=== PATIENT | female | born 1960 | race Hispanic/Latino ===

== ENCOUNTER 2023-10-08 12:50 | Emergency (ER) | payer MEDICAID ==
[~2023-10-08] VITALS: Ht 172.7 cm; Wt 56.7 kg
[2023-10-08] MEDS ORDERED: MORPHINE 2 MG SYG IM ONE (14:00)
[2023-10-08] MEDS ORDERED: KETOROLAC 30MG VIAL (30MG/ML) IM ONE (15:00)
[2023-10-08] MEDS ORDERED: NAPR-1180 PO (15:39)
[2023-10-08] MEDS ORDERED: M-SA237L TP (15:40)
[2023-10-08 15:58] VITALS: BP 147/73; PULSE 82; RESP 18; O2SAT 98
== END 2023-10-08 16:01 | disposition home or self-care (01) ==
LOC: EDH 12:50
DX: M25.562 Pain in left knee (principal); M25.561 Pain in right knee; E78.00 Pure hypercholesterolemia, unspecified; Z88.0 Allergy status to penicillin; W01.10XA Fall on same level from slipping, tripping and stumbling with subsequent striking against unspecified object, initial encounter; Y93.89 Activity, other specified; Y92.89 Other specified places as the place of occurrence of the external cause; Y99.8 Other external cause status
CPT/HCPCS: 99284; 73560; 96372 ×2; J2270; J1885